=== PATIENT | female | born 1955 | race Caucasian/White ===

== ENCOUNTER 2018-06-27 10:23 | Day surgery (SDC) | payer OTHER ==
[2018-06-20 15:34] VITALS: BMI 25.0
[~2018-06-27 10:23] MED LIST: LACTATED RINGERS 1,000 ML IV SCH
[2018-06-27] MEDS: PHENYLEPHRINE 10% OPHTH DROPS 5 ML BTL OP ONE ×3 (11:31→11:52)
[2018-06-27] MEDS: CYCLOPENTOLATE 1% OPHTH SOLN 2 ML BTL OP ONE ×3 (11:34→11:55)
[2018-06-27] MEDS: FLURBIPROFEN 0.03% OPHTH DROPS 2.5 ML BTL OP ONE ×3 (11:37→11:58)
[2018-06-27 11:39] VITALS: RESP 18; TEMP 97.6
[2018-06-27] MEDS ORDERED: LIDOCAINE 1% 20 ML VIAL (10MG/ML) FOR IV START INTRADERMA ONE (11:50)
[2018-06-27] MEDS ORDERED: fentaNYL (PF) 50 MCG/ML 2 ML AMP IVP ONE (12:08)
[2018-06-27] MEDS ORDERED: PROPOFOL 10 MG/ML 20 ML VIAL IV ONE (12:30)
[2018-06-27] MEDS ORDERED: BALANCED SALT IRRIG SOLN COMB2 15 ML IRRIG.SOLN IRRIGATION ONE (12:45)
[2018-06-27] MEDS ORDERED: HYALURONATE SODIUM INTRAOCULAR 1 EACH SYRINGE (10MG/ML) INTRAOCULA ONE (12:45)
[2018-06-27] MEDS ORDERED: EPINEPHrine (PF) 0.5 ML in BALANCED SALT IRRIG SOLN COMB2 500 ML IRRIGATION ONE (12:46)
[2018-06-27] MEDS ORDERED: TRYPAN BLUE 0.06% SYRINGE 0.5 ML SYRINGE INTRAOCULA ONE (12:46)
--- NOTE | 2018-06-27 13:13 | P.OP ---
Date of Procedure: 06/27/18 Procedure(s) Performed: PREOPERATIVE DIAGNOSIS: Cataract, zonular dehisence, and glaucoma, right eye. POSTOPERATIVE DIAGNOSIS: Cataract, zonular dehisence, and glaucoma, right eye. OPERATION: Phacoemulsification cataract, Insertion of lens implant, capsular tension ring, and Cypass glaucoma stent, right eye. DESCRIPTION OF PROCEDURE: The patient was taken to the preoperative holding area. Intravenous Propofol was given so as to bring about adequate sedation. The following mixture was given for local anesthesia: 5 mL of 2% lidocaine, 5 mL of 0.75% Marcaine, and 1 mL of Wydase. Approximately 4 mL was injected in the retrobulbar space of the surgical eye. Additional 1 mL was then directed to the temporal area of the surgical eye. This was performed to allow adequate neurological block of the facial muscles. The patient was revived and then taken into the operative room. The patient was prepped and draped in the usual sterile manner for the operative eye. A lid speculum was put into position. The conjunctiva was resected back from the limbus in the 12 o'clock position. Bleeding was controlled with electrocautery. A #69 blade was then used and a half-thickness scleral incision approximately 1-mm posterior to the limbus was made on bare sclera. This was shelved in the clear cornea using a crescent knife. Next a 15-degree blade was used to make a stab incision at the 3 o' clock position at the corneolimbal interface. Keratome blade was then used and the superior wound was extended into the anterior chamber. An air bubble was injected into the anterior chamber and Trypan Blue dye was dripped onto the lens surface. Dye was noted to have moved behind the posterior lens surface through the dialysis cleft. Viscoelastic was injected into the anterior chamber and to maintain its form. Next, a cystotome was used and a continuous anterior capsulotomy was made without difficulty. Hydrodissection using a blunt cannula and BSS was performed. Phaco probe was then employed and a groove extending from 12 to 6 o'clock in the lens was created. A David wand was used through the stab incision so as to perform a divide and conquer technique. Next an irrigation aspiration probe was utilized and any residual cortex was removed from the eye. Again, viscoelastic was injected into the anterior chamber. A capsular tension ring was injected into the lens capsule. An Antoine posterior chamber lens implant was placed in the cartridge and injected into the anterior chamber without difficulty. The Sinskey hook was utilized to spin the lens into position. A Cypass stent was placed in the inferior temporal quadrant using a hand held gonioprism for guidance. It was placed there to avoid the dialysis cleft. The irrigation and aspiration probe was again employed and any residual viscoelastic was removed from the eye. Then BSS was injected into the limbal stab incision and the anterior chamber re- inflated. The conjunctiva was reapproximated using electrocautery. One drop of 0.25% Timoptic was placed over the corneal along with TobraDex ophthalmic ointment. Two sterile patches and a Barrera eye shield were taped into position. The patient was transported to the recovery room in stable condition. Pathology: none sent Condition: stable Disposition: same day
[2018-06-27 13:55] VITALS: BP 153/100; PULSE 69
[2018-06-27] MEDS ORDERED: BUPIVACAINE (PF) 0.75% 5 ML, HYALURONIDASE, HUMAN RECOMB 150 UNIT, LIDOCAINE 2% (PF) 10... MISCELLANE ONE ×3 (23:00)
[2018-06-27] MEDS ORDERED: TIMOLOL 0.5% OPHTH DROPS 5 ML BTL OP ONE (23:00)
[2018-06-27] MEDS ORDERED: GENTAMICIN/PREDNISOL AC OPHTH OINT 3.5GM OPHTHALMIC ONE (23:00)
== END 2018-06-27 14:15 | disposition home or self-care (01) ==
LOC: OR 10:23
PROVIDERS: ATTEND Ophthalmology
DX: H25.11 Age-related nuclear cataract, right eye (principal); H40.1110 Primary open-angle glaucoma, right eye, stage unspecified; H35.3190 Nonexudative age-related macular degeneration, unspecified eye, stage unspecified; I10 Essential (primary) hypertension; Z79.891 Long term (current) use of opiate analgesic; Z79.899 Other long term (current) drug therapy; Z85.3 Personal history of malignant neoplasm of breast
CPT/HCPCS: 0474T; 66982

== ENCOUNTER 2018-08-15 06:01 | Day surgery (SDC) | payer OTHER ==
[2018-08-14 08:39] VITALS: BMI 24.7
[2018-08-15] MEDS: FLURBIPROFEN 0.03% OPHTH DROPS 2.5 ML BTL OP ONE ×3 (06:28→06:46)
[2018-08-15] MEDS: CYCLOPENTOLATE 1% OPHTH SOLN 2 ML BTL OP ONE ×3 (06:31→06:49)
[2018-08-15 06:32] VITALS: RESP 16; TEMP 97.8
[2018-08-15] MEDS: PHENYLEPHRINE 10% OPHTH DROPS 5 ML BTL OP ONE ×3 (06:34→06:55)
[2018-08-15] MEDS ORDERED: LIDOCAINE 1% 20 ML VIAL (10MG/ML) FOR IV START INTRADERMA ONE (06:38)
[2018-08-15] MEDS ORDERED: LACTATED RINGERS 1,000 ML IV ONE (06:43)
[2018-08-15] MEDS ORDERED: DEXAMETHASONE SOD PHOS (MDV) 100 MG/10 ML VIAL IV ONE (06:52)
[2018-08-15] MEDS ORDERED: ONDANSETRON 4 MG/2 ML VIAL IVP ONE ×2 (06:53→07:38)
[2018-08-15] MEDS ORDERED: BALANCED SALT IRRIG SOLN COMB2 15 ML IRRIG.SOLN IRRIGATION ONE (07:23)
[2018-08-15] MEDS ORDERED: HYALURONATE SODIUM INTRAOCULAR 1 EACH SYRINGE (10MG/ML) INTRAOCULA ONE (07:24)
[2018-08-15] MEDS ORDERED: MORPHINE SULFATE 2 MG/ML SYRINGE IV PRN (07:38)
[2018-08-15] MEDS ORDERED: DEXAMETHASONE SOD PHOSPHATE 10 MG/ML 1 ML VIAL IV ONE (07:38)
[2018-08-15] MEDS ORDERED: LACTATED RINGERS 1,000 ML IV SCH (07:45)
[2018-08-15] MEDS ORDERED: PROPOFOL 10 MG/ML 20 ML VIAL IV ONE (07:46)
[2018-08-15] MEDS ORDERED: EPINEPHrine (PF) 0.5 ML in BALANCED SALT IRRIG SOLN COMB2 500 ML IRRIGATION ONE (08:02)
[2018-08-15 08:41] VITALS: BP 129/94; PULSE 74
--- NOTE | 2018-08-15 08:58 | P.OP ---
Date of Procedure: 08/15/18 Procedure(s) Performed: PREOPERATIVE DIAGNOSIS: Cataract and glaucoma, left eye. POSTOPERATIVE DIAGNOSIS: Cataract and glaucoma, left eye. OPERATION: Phacoemulsification cataract, placement of I-stent, left eye. DESCRIPTION OF PROCEDURE: The patient was taken to the preoperative holding area. Intravenous Propofol was given so as to bring about adequate sedation. The following mixture was given for local anesthesia: 5 mL of 2% lidocaine, 5 mL of 0.75% Marcaine, and 1 mL of Wydase. Approximately 4 mL was injected in the retrobulbar space of the surgical eye. Additional 1 mL was then directed to the temporal area of the surgical eye. This was performed to allow adequate neurological block of the facial muscles. The patient was revived and then taken into the operative room. The patient was prepped and draped in the usual sterile manner for the operative eye. A lid speculum was put into position. The conjunctiva was resected back from the limbus in the 12 o'clock position. Bleeding was controlled with electrocautery. A #69 blade was then used and a half-thickness scleral incision approximately 1-mm posterior to the limbus was made on bare sclera. This was shelved in the clear cornea using a crescent knife. Next a 15-degree blade was used to make a stab incision at the 3 o' clock position at the corneolimbal interface. Keratome blade was then used and the superior wound was extended into the anterior chamber. Viscoelastic was injected into the anterior chamber and to maintain its form. Using a handheld gonioprism for guidance, an I-stent was placed in the inferior Schlemm' s Canal. Next, a cystotome was used and a continuous anterior capsulotomy was made without difficulty. Hydrodissection using a blunt cannula and BSS was performed. Phaco probe was then employed and a groove extending from 12 to 6 o' clock in the lens was created. A David wand was used through the stab incision so as to perform a divide and conquer technique. Next an irrigation aspiration probe was utilized and any residual cortex was removed from the eye. Again, viscoelastic was injected into the anterior chamber. An Antoine posterior chamber lens implant was placed in the cartridge and injected into the anterior chamber without difficulty. The Sinskey hook was utilized to spin the lens into position and this was again performed without any difficulty. The irrigation and aspiration probe was again employed and any residual viscoelastic was removed from the eye. Then BSS was injected into the limbal stab incision and the anterior chamber re-inflated. The conjunctiva was reapproximated using electrocautery. One drop of 0.25% Timoptic was placed over the corneal along with TobraDex ophthalmic ointment. Two sterile patches and a Barrera eye shield were taped into position. The patient was transported to the recovery room in stable condition. Pathology: none sent Condition: stable Disposition: same day
[2018-08-15] MEDS ORDERED: GENTAMICIN/PREDNISOL AC OPHTH OINT 3.5GM OPHTHALMIC ONE (23:00)
[2018-08-15] MEDS ORDERED: TIMOLOL 0.5% OPHTH DROPS 5 ML BTL OP ONE (23:00)
[2018-08-15] MEDS ORDERED: BUPIVACAINE (PF) 0.75% 5 ML, HYALURONIDASE, HUMAN RECOMB 150 UNIT, LIDOCAINE 2% (PF) 10... MISCELLANE ONE ×3 (23:00)
== END 2018-08-15 08:52 | disposition home or self-care (01) ==
LOC: OR 06:01
PROVIDERS: ATTEND Ophthalmology
DX: H26.9 Unspecified cataract (principal); H40.9 Unspecified glaucoma; H33.20 Serous retinal detachment, unspecified eye; I10 Essential (primary) hypertension; Z79.891 Long term (current) use of opiate analgesic; Z79.899 Other long term (current) drug therapy
CPT/HCPCS: 66984; 66183; V2632; C1783; J3470; J2001; J2405; J0171; J1100; J2704

== ENCOUNTER → 2018-11-01 | Outpatient (CLI) | payer OTHER ==
--- NOTE | 2018-11-01 12:05 | XR ---
EXAMINATION TYPE: XR ribs bilat w pa chest xray DATE OF EXAM: 11/01/2018 COMPARISON: NONE HISTORY: Pain TECHNIQUE: Single view of the chest 8 views of the bilateral ribs are submitted. FINDINGS: The lungs are clear. No Evidence for pneumothorax. No evidence for focal contusion. Medi astinal structures are midline. Evaluation of the ribs demonstrates virtually nondisplaced fractures of left anterior ribs 5 and 6. No additional displaced rib fractures seen bilaterally. IMPRESSION: virtually nondisplaced fractures of left anterior ribs 5 and 6.
== END | disposition home or self-care (01) ==
LOC: RADXRMAIN 11:17
PROVIDERS: ATTEND Family Medicine
DX: S22.42XA Multiple fractures of ribs, left side, initial encounter for closed fracture (principal)
CPT/HCPCS: 71111

== ENCOUNTER 2019-06-01 16:06 | Emergency (ER) | payer OTHER ==
[2019-06-01 16:11] VITALS: BP 119/78; PULSE 80; RESP 18; TEMP 98.2
[2019-06-01] MEDS ORDERED: DEXAMETHASONE SOD PHOSPHATE 10 MG/ML 1 ML VIAL IM STA (16:25)
--- NOTE | 2019-06-01 16:28 | ED ---
General Adult HPI - General Chief complaint: Back Pain/Injury Stated complaint: Post Op Back Pain Time Seen by Provider: 06/01/19 16:11 Source: patient, RN notes reviewed, old records reviewed Mode of arrival: ambulatory Limitations: physical limitation - History of Present Illness Initial comments: 64-year-old female presents with left low back pain. Patient is 2 days postop lumbar spinal surgery. Patient indicates that she likely had discectomy, uncertain if she had any other surgical procedure. She was on steroids in the hospital she states she was feeling quite well for the first 24 hours. She was discharged on Robaxin and tramadol. She's had worsening pain with ambulation over the past 24 hours. No fever or chills. She had some left lower extremity numbness prior to the surgery and this is unchanged. No bowel or bladder dysfunction. She states the pain is worse with ambulation. She feels quite well at rest. No fall, no trauma. - Related Data Home Medications Medication Instructions Recorded Confirmed Acetaminophen [Tylenol Arthritis] 2 tab PO BID 06/20/18 08/15/18 Cranberry Fruit Extract [Cranberry] 4,200 mg PO DAILY 06/20/18 08/14/18 Cyclobenzaprine [Flexeril] 10 mg PO HS 06/20/18 08/14/18 Gabapentin [Neurontin] 300 mg PO TID 06/20/18 08/14/18 Glucosam/Teodoro-Msm1/C/Jose/Bosw 1 each PO DAILY 06/20/18 08/14/18 [Glucosamine-Chondroitin Tablet] Magnesium Gluconate [Magonate] 500 mg PO DAILY 06/20/18 08/14/18 Meloxicam 15 mg PO DAILY 06/20/18 08/14/18 Tolterodine Tartrate [Detrol LA] 4 mg PO HS 06/20/18 08/14/18 Venlafaxine HCl ER [Effexor XR] 75 mg PO DAILY 06/20/18 08/14/18 Vit C/E/Zn/Coppr/Lutein/Zeaxan 1 each PO DAILY 06/20/18 08/14/18 [Preservision Areds 2 Softgel] amLODIPine BESYLATE/BENAZEPRIL 1 tab PO HS 06/20/18 08/14/18 [Lotrel 2.5-10 MG] traZODone HCL 50 mg PO HS 06/20/18 08/14/18 Ascorbic Acid [Vitamin C] 1,000 mg PO DAILY 08/14/18 08/14/18 Butalb/Asprin/Caff 50-325-40Mg 1 - 2 cap PO Q4HR 08/14/18 08/14/18 [Fiorinal 50-325-40 MG] Previous Rx's Medication Instructions Recorded methylPREDNISolone Dose Pack 4 mg PO DIRECTED #21 package 06/01/19 [Medrol Dose Pack] oxyCODONE HCL/ACETAMINOPHEN 1 tab PO Q6HR PRN 3 Days #12 tab 06/01/19 [Percocet 5-325 mg] Allergies Allergy/AdvReac Type Severity Reaction Status Date / Time No Known Allergies Allergy Verified 06/01/19 16:11 Review of Systems ROS Statement: Those systems with pertinent positive or pertinent negative responses have been documented in the HPI. ROS Other: All systems not noted in ROS Statement are negative. Past Medical History Past Medical History: Cancer, Eye Disorder, Hypertension Additional Past Medical History / Comment(s): GLAUCOMA, MAC. DEGENERATION, cataracts, hx. breast cancer, History of Any Multi-Drug Resistant Organisms: None Reported Past Surgical History: Bladder Surgery, Breast Surgery, Hysterectomy, Tonsillectomy Additional Past Surgical History / Comment(s): RT BREAST LUMPECTOMY, cataract removed right eye,RT EYE SX FOR MACULAR, HOLE BLADDER SUSPENSION, back surgery Past Anesthesia/Blood Transfusion Reactions: Postoperative Nausea & Vomiting (PONV) Additional Past Anesthesia/Blood Transfusion Reaction / Comment(s): SLOW TO WAKE UP Past Psychological History: No Psychological Hx Reported Smoking Status: Never smoker Past Alcohol Use History: None Reported Past Drug Use History: None Reported - Past Family History Mother Family Medical History: Deep Vein Thrombosis (DVT), Pulmonary Embolus Father Family Medical History: Deep Vein Thrombosis (DVT) Brother(s) Family Medical History: Cancer Additional Family Medical History / Comment(s): BROTHER #1-LEUKEMA, LYMPHOMA. BROTHER #2-LUNG CANCER General Exam Limitations: physical limitation General appearance: alert, in no apparent distress Head exam: Present: atraumatic, normocephalic Eye exam: Present: normal appearance, PERRL Neck exam: Present: normal inspection, full ROM Respiratory exam: Present: normal lung sounds bilaterally. Absent: respiratory distress, wheezes Cardiovascular Exam: Present: regular rate, normal rhythm GI/Abdominal exam: Present: soft. Absent: distended, tenderness Extremities exam: Present: normal inspection, full ROM, normal capillary refill, pedal edema. Absent: joint swelling, calf tenderness Back exam: Present: tenderness (Left paraspinal tenderness lower lumbar and sacral region.), other (Incision, dressing is clean dry and intact, there is no Drainage. No significant erythema.) Neurological exam: Present: alert, oriented X3, CN II-XII intact, motor sensory deficit Psychiatric exam: Present: normal affect, normal mood Skin exam: Present: warm, dry, intact. Absent: cyanosis, diaphoretic Course Vital Signs 06/01/19 16:09 Temperature 98.2 F Pulse Rate 80 Respiratory 18 Rate Blood Pressure 119/78 O2 Sat by Pulse 99 Oximetry Medical Decision Making - Medical Decision Making 64-year-old female 2 days postop lumbar surgery. Patient well-appearing, stable vitals, afebrile. Incision clean dry and intact. She was offered oxycodone at discharge but did not take this medication because she felt she was doing well. I discussed case with her surgeon Dr. Knight at [facility]. Recommend Medrol Dosepak and stronger pain medication. Patient can follow-up as an outpatient with any new issues please review presented emergency department, fever, worsening pain. Disposition Clinical Impression: Postoperative pain after spinal surgery Disposition: HOME SELF-CARE Condition: Good Instructions (If sedation given, give patient instructions): Acute Low Back Pain (ED) Prescriptions: methylPREDNISolone Dose Pack [Medrol Dose Pack] 4 mg PO DIRECTED #21 package oxyCODONE HCL/ACETAMINOPHEN [Percocet 5-325 mg] 1 tab PO Q6HR PRN 3 Days #12 tab PRN Reason: Pain Is patient prescribed a controlled substance at d/c from ED?: Yes When asked, does pt state using other controlled substances?: No If prescribed controlled substance>3 days was MAPS reviewed?: Prescribed <3 Days If opioid is for acute pain is fill amount 7 days or less?: Yes If Rx opioid, was Start Talking consent form obtained?: Yes Referrals: Chidi Suazo MD [Primary Care Provider] - 1-2 days Galdino Knight MD [REFERRING] - 1-2 days Time of Disposition: 16:36
== END 2019-06-01 16:56 | disposition home or self-care (01) ==
LOC: EC 16:06
DX: G89.18 Other acute postprocedural pain (principal); M54.5 Low back pain; R20.0 Anesthesia of skin; I10 Essential (primary) hypertension; Z79.1 Long term (current) use of non-steroidal anti-inflammatories (NSAID); Z79.899 Other long term (current) drug therapy; Z85.3 Personal history of malignant neoplasm of breast; Z98.890 Other specified postprocedural states
CPT/HCPCS: 99283; 96372; J1100